=== PATIENT | male | born 1985 | race Caucasian/White ===

== ENCOUNTER 2024-10-27 08:01 | Day surgery (SDC) | payer BC, OTHER ==
[2024-10-22 13:37] VITALS: BMI 30.9
[~2024-10-27 08:01] MED LIST: LIDOCAINE 1% (10MG/ML) FOR IV START INTRADERMA PRN
[2024-10-27 08:30] VITALS: RESP 16; TEMP 99
[2024-10-27] MEDS: IV FLUID CONTINUATION 1,000 ML IV ONE (08:38)
[2024-10-27] MEDS: LACTATED RINGERS 1,000 ML IV SCH (08:38)
[2024-10-27] MEDS ORDERED: fentaNYL (PF) 50 MCG/ML 2 ML AMP ONE (09:17)
[2024-10-27] MEDS ORDERED: PROPOFOL 10 MG/ML 20 ML VIAL IV ONE (09:17)
[2024-10-27] MEDS ORDERED: MIDAZOLAM 2 MG/2 ML VIAL ONE (09:17)
[2024-10-27] MEDS ORDERED: LIDOCAINE 1% INJ 10MG/ML (20 ML MDV) ONE (09:17)
--- NOTE | 2024-10-27 09:25 | P.GSHP ---
History of Present Illness H&P Date: 10/27/24 Chief Complaint: GERD, change in bowel habits 39-year-old male here for upper and lower endoscopy. Patient states starting 4 months ago or so he developed frequent loose stools. Up to 15 times per day. Started on hyoscyamine with some improvement in his symptoms. No rectal bleeding or melena. Patient with frequent hiccups and some heartburn as well. Family history of colon cancer in a maternal aunt. Past Medical History Past Medical History: GERD/Reflux, Hypertension History of Any Multi-Drug Resistant Organisms: None Reported Past Surgical History: No Surgical Hx Reported Past Anesthesia/Blood Transfusion Reactions: No Reported Reaction Additional Past Anesthesia/Blood Transfusion Reaction / Comment(s): no blood transfusion Smoking Status: Never smoker Medications and Allergies Home Medications Medication Instructions Recorded Confirmed Type Dicyclomine HCl 20 mg PO BID 10/22/24 10/27/24 History lisinopriL [Zestril] 10 mg PO DAILY 10/22/24 10/27/24 History tadalafiL 10 mg PO DAILY 10/22/24 10/27/24 History Allergies Allergy/AdvReac Type Severity Reaction Status Date / Time No Known Allergies Allergy Verified 10/22/24 13:32 Surgical - Exam Vital Signs Temp Pulse Resp BP Pulse Ox 99 F 94 16 117/73 99 10/27/24 08:29 10/27/24 08:29 10/27/24 08:29 10/27/24 08:29 10/27/24 08:29 Physical exam: General: Well-developed, well-nourished HEENT: Normocephalic, sclerae nonicteric Abdomen: Nontender, nondistended Extremities: No edema Neuro: Alert and oriented Assessment and Plan (1) Change in bowel habits Narrative/Plan: Will proceed with upper and lower endoscopy at this time Current Visit: Yes Status: Acute Code(s): R19.4 - CHANGE IN BOWEL HABIT SNOMED Code(s): 38636147
--- NOTE | 2024-10-27 09:43 | P.PCN ---
Date of Procedure: 10/27/24 Procedure(s) Performed: PREOPERATIVE DIAGNOSIS: GERD, change in bowel habits POSTOPERATIVE DIAGNOSIS: Gastritis, gastric polyp, small hiatal hernia, mild distal esophagitis, normal-appearing colon PROCEDURE: 1. EGD with biopsy 2. Colonoscopy with random biopsies ANESTHESIA: [facility] [place] SURGEON: Kj Galindo M.D. SPECIMENS: Antrum, gastric polyp, distal esophagus, ENDOSCOPIC PROCEDURE: The patient was on the endoscopy table in the left decubitus position. The Olympus gastroscope was inserted into the oropharynx and passed under direct visualization to the region of the third portion of the duodenum. From that point the scope was slowly withdrawn inspecting all surfaces carefully. There were no neoplastic inflammatory or polypoid lesions throughout the duodenum. The pylorus was widely patent. The stomach was carefully inspected. There was mild gastritis present. A biopsy of the antrum took place to rule out H. pylori. Additionally the patient had a small polyp in the fundus that was removed using the cold biopsy forceps. Retroflexion revealed a small 1 cm hiatal hernia. At the GE junction there was a single linear erosion measuring less than 1 cm. A biopsy was taken of this area. The remainder the esophagus appeared normal. The patient was kept on the endoscopy table in the left decubitus position. The Olympus colonoscope was inserted into the anus and passed under direct visualization to the base of the cecum. The appendiceal orifice was visualized. The terminal ileum was inspected for a distance of approximately 5 cm. No inflammation was noted. From that point the scope was slowly withdrawn inspecting all surfaces carefully. There were no neoplastic inflammatory or polypoid lesions throughout the cecum, ascending, transverse, descending, sigmoid and rectum. There was no visible diverticulosis noted. Random biopsies of the colon were taken to evaluate for microscopic colitis. Digital rectal examination was normal. The patient was taken to the recovery room in stable condition per anesthesia guidelines. RECOMMENDATIONS: []
[2024-10-27 10:09] VITALS: BP 117/76; PULSE 92
== END 2024-10-27 10:27 | disposition home or self-care (01) ==
LOC: ORWHC2ENDO 08:01
PROVIDERS: ATTEND Surgery
DX: K29.50 Unspecified chronic gastritis without bleeding (principal); K21.00 Gastro-esophageal reflux disease with esophagitis, without bleeding; K31.7 Polyp of stomach and duodenum; K44.9 Diaphragmatic hernia without obstruction or gangrene; R19.4 Change in bowel habit; I10 Essential (primary) hypertension; Z80.0 Family history of malignant neoplasm of digestive organs; Z79.899 Other long term (current) drug therapy
CPT/HCPCS: 45380; 43239; J2250; J2003; J3010; J2704; 88305